=== PATIENT | male | born 1930 | race Caucasian/White ===

== ENCOUNTER 2021-01-26 17:03 | Emergency (ER) | payer OTHER ==
[~2021-01-26] VITALS: Ht 177.8 cm; Wt 81.7 kg
--- NOTE | ~2021-01-26 | EMS ---
[address] [address] EMS Patient Care Report Name: JANELL GARCIA JR Room #: DEP Klever#: [id number] Admission: 01/26/21 Attend Phys: Discharge: 01/26/21 Date of : [birth year] Report #: [id number] THIS REPORT FOR: //name// Report Transmitted: 01/28/2021 12:25 EMS Care Summary [facility] MED-ACT Incident [id number] @ 01/26/2021 16:36 Incident Location [address] [place] [address] Patient JANELL GARCIA Male, 89 Years 1930 Patient Address [address] [place] [address] Patient History Dementia,Hypertension (HTN),Hyperlipidemia, Patient Allergies No known allergies, Patient Medications Lisinopril, Atorvastatin, Sertraline, Chief Complaint Right hip pain Disposition Transported No Lights/[place] Dispatch Reason Falls Transported To [facility] Narrative EMS made contact with 1 male pt sitting in his chair in no apparent distress. Pt and staff reported that the pt had fallen this morning but was now unable to [address] [address] EMS Patient Care Report Name: JANELL GARCIA JR Room #: DEP Jabari.#: [id number] Admission: 01/26/21 Attend Phys: Discharge: 01/26/21 Date of : [birth year] Report #: [id number] walk due to right hip pain and had been in his chair since this morning. Pt didn't rate pain but was unable to move without wincing and grunting with pain. Pt recalled the fall and denied loss of consciousness. head neck or back pain or other acute pain. Pt reported a decrease in pain with fentanyl administration. Pt voiced no further complaints while in EMS care. Initial Vitals @16:55P: 70,R: 16,BP: 155/82,Pain: 6/10,SpO2: 90, @PTAP: 72,R: 16,BP: 156/87,Pain: 10/10,GCS: 14,Temp: 98.7F,Revised Trauma: 12, Impression Injury of Hip Procedures @PTASaline Lock 10cc (20 ga) Site: Hand-LeftResponse: UnchangedSucceeded@16:46Fentanyl - 100 Micrograms (mcg) - Intravenous (IV)Response: Improved@17:00Ondansetron - 4 Milligrams (mg) - OralResponse: Improved Timeline TURN DOWN ATTENDANT,Saline Lock 10cc 20 ga Site: Hand-Left,Response: UnchangedSucceeded, TURN DOWN ATTENDANT,BP: 156/87 M,PULSE: 72,RR: 16 R,SPO2: Ox,ETCO2: ,BG: ,PAIN: 10,GCS: 14, 16:31,Call Received 16:31,Psap Call 16:36,Dispatched 16:36,En Route 16:39,On Scene 16:41,At Patient 16:46,Fentanyl - 100 Micrograms (mcg) - Intravenous (IV),Response: Improved 16:52,Depart Scene 16:55,BP: 155/82 M,PULSE: 70,RR: 16 R,SPO2: 90 Ox,ETCO2: ,BG: ,PAIN: 6,GCS: , 17:00,Ondansetron - 4 Milligrams (mg) - Oral,Response: Improved 17:01,At Destination 17:19,Call Closed Disclaimer v1.1 Copyright 2020 [employer] This EMS Care Summary contains data elements from the applicable legal record (which may be displayed differently). It is designed to provide pertinent information for the following purposes: continuity of care, clinical quality, and state data reporting. The complete legal record is available to ED staff and administrators of the receiving hospital in [employer]'s Patient Tracker. All data is provided "as is."
[2021-01-26 17:30] LABS: BASOPHILS 0.2 % (0.0-2.0); EOSINOPHILS 1.6 % (0.0-3.0); HEMATOCRIT 39.8 % (42.0-52.0); HEMOGLOBIN 13.6 gm/dL (14.0-18.0); LYMPHOCYTES 14.4 % (24.0-44.0); MCH 30.7 pg (26.0-34.0); MCHC 34.3 g/dL (28.0-37.0); MCV 89.4 fL (80.0-100.0); MONOCYTES 7.3 % (1.0-8.0); PLATELET COUNT 191 thou/uL (150-400); POLYS 76.5 % (36.0-66.0); RBC 4.45 mil/uL (4.50-6.00); RDW 14.8 % (10.5-14.5); WBC 7.8 thou/uL (4.0-11.0)
[2021-01-26 17:39] LABS: CALCIUM 8.5 mg/dL (8.5-10.1); POTASSIUM 4.1 mmol/L (3.5-5.1)
[2021-01-26 17:49] LABS: ALBUMIN 3.8 g/dL (3.4-5.0); TOTAL PROTEIN 7.4 g/dL (6.4-8.2)
[2021-01-26 19:06] LABS: URINE BILIRUBIN NEGATIVE (Negative); URINE BLOOD NEGATIVE (Negative); URINE CLARITY CLEAR; URINE COLOR YELLOW; URINE GLUCOSE-RANDOM* NEGATIVE (Negative); URINE KETONES TRACE (Negative); URINE LEUKOCYTES-REFLEX NEGATIVE (Negative); URINE NITRITE-REFLEX NEGATIVE (Negative); URINE PROTEIN (DIPSTICK) NEGATIVE (Negative); URINE UROBILINOGEN 0.2 E.U./dl (0.2-1.0)
[2021-01-26 20:33] VITALS: BP 124/67
--- NOTE | 2021-01-27 07:10 | EKG ---
[address] [address] ELECTROCARDIOGRAM REPORT Name: JANELL GARCIA [id number] Admission: 01/26/21 Attend Phys: Discharge: 01/26/21 Date of : [birth year] Report #: [id number] [facility] ED Test Date: 2021-01-26 Test Time: 17:26:40 Pat Name: JANELL GARCIA Department: Room: Gender: Manager Solar: CHRISTOFER : 1930 Requested By: Daren Ortega Order Number: [id number] MD: Cedrick Briceno Measurements Intervals [place] Rate: 70 P: FL: QRS: -6 QRSD: 150 T: 41 QT: 434 QTc: 469 Interpretive Statements NSR Nonspecific intraventricular conduction delay No previous ECG available for comparison Electronically Signed On 01-27-2021 7:10:19 CDT by Cedrick Briceno [email or web address] <ELECTRONICALLY SIGNED> By: Cedrick Briceno MD, [facility] 01/27/21 0710 1726 1726 Cedrick Briceno MD, FACC /EPI
== END 2021-01-26 20:46 | disposition home or self-care (01) ==
LOC: ER 17:03
PROVIDERS: Emergency Medicine
DX: M54.50 Low back pain, unspecified (principal); W19.XXXA Unspecified fall, initial encounter; Y93.89 Activity, other specified; Y92.89 Other specified places as the place of occurrence of the external cause; Y99.8 Other external cause status

== ENCOUNTER 2021-02-12 13:56 | Inpatient (IN) | payer OTHER ==
[~2021-02-12] VITALS: Ht 172.7 cm; Wt 75.4 kg
--- NOTE | ~2021-02-12 | EMS ---
[facility] [address] [place] [address] EMS Patient Care Report Name: JANELL GARCIA JR Room #: REG SIMONE Ernst#: [id number] Admission: 02/12/21 Attend Phys: Discharge: Date of : [birth year] Report #: [id number] THIS REPORT FOR: //name// Report Transmitted: 02/12/2021 13:35 EMS Care Summary [facility] MED-ACT Incident [id number] @ 02/12/2021 13:25 Incident Location [address] [place] [address] Patient JANELL GARCIA Male, 89 Years 1930 Patient Address [address] [place] [address] Patient History Dementia,Hypertension (HTN),Hyperlipidemia, Patient Allergies No known allergies, Patient Medications Atorvastatin, Sertraline, Lisinopril, Chief Complaint "I fell on my way to the bathroom." Disposition Transported No Lights/[place] Dispatch Reason Falls Transported To [facility] Narrative [id number] arrived to find the pt laying right lateral recumbent, in the bed of an assisted living facility apartment, in the presence of facility staff. [id number] [facility] [address] [place] [address] EMS Patient Care Report Name: JANELL GARCIA JR Room #: REG ER Klever#: [id number] Admission: 02/12/21 Attend Phys: Discharge: Date of : [birth year] Report #: [id number] noted that the pt was alert and interactive, anxious and distressed, but not experiencing any current and obvious life threats. The pt reported that he was ambulating to the bathroom, like he normally does, when he slipped and fell. The pt denied loss of consciousness, medical symptoms prior to falling, as well as head, neck, and back pain. Paperwork provided by the facility revealed no Rx to a blood thinner. The pt reported right lateral hip pain. The pt denied all other medial symptoms. M1144 noted no shortening, extension, or rotation of the pt's effected extremity. M1144 noted that the pt's CSM's were intact. The pt deferred pain management via analgesic medication to the destination hospital, stating that his pain was "fine unless I move." Otherwise, the pt's condition remained stable and unchanged during contact with [facility]. Initial Vitals @13:50P: 71,BP: 193/114,SpO2: 97, @13:33P: 69,R: 20,BP: 171/105,Pain: 2/10,GCS: 15,Temp: 98.7F,SpO2: 95,Revised Trauma: 12, Impression Injury of Hip Procedures @PTASurgical Mask on Patient Response: Unchanged Timeline FAILURE ANALYSIS TECHNICIAN,Surgical Mask on Patient,Response: Unchanged 13:23,Call Received 13:23,Psap Call 13:25,Dispatched 13:25,En Route 13:29,On Scene 13:31,At Patient 13:33,BP: 171/105 M,PULSE: 69,RR: 20 R,SPO2: 95 Ox,ETCO2: ,BG: ,PAIN: 2,GCS: 15, 13:39,Depart Scene 13:50,BP: 193/114 M,PULSE: 71,RR: R,SPO2: 97 Ox,ETCO2: ,BG: ,PAIN: ,GCS: , 13:51,At Destination 14:03,Call Closed Disclaimer v1.1 Copyright 2020 [employer] [facility] [address] [place] [address] EMS Patient Care Report Name: GARCIAJANELL Room #: REG [facility].#: [id number] Admission: 02/12/21 Attend Phys: Discharge: Date of : [birth year] Report #: [id number] This EMS Care Summary contains data elements from the applicable legal record (which may be displayed differently). It is designed to provide pertinent information for the following purposes: continuity of care, clinical quality, and state data reporting. The complete legal record is available to ED staff and administrators of the receiving hospital in [employer]'s Patient Tracker. All data is provided "as is."
[2021-02-12 13:56] VITALS: BP 179/103
--- NOTE | 2021-02-12 14:21 | NUR ---
ZEV LAURA, DAUGHTER [phone]
[2021-02-12] MEDS ORDERED: ASA81BEC PO (14:23)
[2021-02-12] MEDS ORDERED: CALCIUM CITRAT1 EAC7 PO (14:23)
[2021-02-12] MEDS ORDERED: LIPITOR40 MG PO (14:23)
[2021-02-12] MEDS ORDERED: ARICEPT10 M1 PO (14:23)
[2021-02-12] MEDS ORDERED: CELECOXIB100 MG PO (14:24)
[2021-02-12] MEDS ORDERED: CENTRUM SILVER1 EAC7 PO (14:24)
[2021-02-12] MEDS ORDERED: LIDO KING1 EACH TRANSDERM (14:25)
[2021-02-12] MEDS ORDERED: NITROSTAT0.4 M1 SUBLING ×2 (14:25→14:26)
[2021-02-12] MEDS ORDERED: LISINOPRIL10 MG PO (14:25)
[2021-02-12] MEDS ORDERED: SERTRALINE HCL100 MG PO (14:26)
[2021-02-12] MEDS ORDERED: ACETAMINOPHEN500 M1 PO (14:26)
[2021-02-12 14:33] LABS: ABSOLUTE NEUTROPHILS 5.2 thou/uL (1.4-8.2); BASOPHILS 0.4 % (0.0-2.0); EOSINOPHILS 1.6 % (0.0-3.0); HEMATOCRIT 38.3 % (42.0-52.0); HEMOGLOBIN 12.8 gm/dL (14.0-18.0); LYMPHOCYTES 13.2 % (24.0-44.0); MCH 29.9 pg (26.0-34.0); MCHC 33.4 g/dL (28.0-37.0); MCV 89.6 fL (80.0-100.0); MONOCYTES 6.6 % (1.0-8.0); PLATELET COUNT 278 thou/uL (150-400); POLYS 78.2 % (36.0-66.0); RBC 4.27 mil/uL (4.50-6.00); RDW 14.8 % (10.5-14.5); WBC 6.6 thou/uL (4.0-11.0)
[2021-02-12 14:49] LABS: CALCIUM 8.6 mg/dL (8.5-10.1); CREATININE 0.9 mg/dL (0.7-1.3); POTASSIUM 4.2 mmol/L (3.5-5.1)
[2021-02-12 14:55] LABS: ALBUMIN 3.7 g/dL (3.4-5.0); TOTAL BILIRUBIN 0.6 mg/dL (0.2-1.0); TOTAL PROTEIN 6.7 g/dL (6.4-8.2)
--- NOTE | 2021-02-12 14:59 | EKG ---
[place] [address] [facility] [place] [address] ELECTROCARDIOGRAM REPORT Name: JANELL GARCIA Room [facility] [id number] Admission: 02/12/21 Attend Phys: Discharge: Date of : [birth year] Report #: [id number] [facility] ED Test Date: 2021-02-12 Test Time: 14:05:37 Pat Name: JANELL GARCIA Department: Room: Gender: M Advertising Rep: CHRISTOFER : 1930 Requested By: Bryan Lafleur Order Number: [id number] MD: Cedrick Briceno Measurements Intervals [place] Rate: 73 P: -29 SC: 85 QRS: -8 QRSD: 104 T: 37 QT: 430 QTc: 474 Interpretive Statements Sinus rhythm Atrial premature complexes Minimal ST elevation, anterior leads Compared to ECG 01/26/2021 17:26:40 Atrial premature complex(es) now present ST (T wave) deviation now present Intraventricular conduction delay no longer present Electronically Signed On 02-12-2021 14:59:44 CDT by Cedrick Briceno [email or web address] <ELECTRONICALLY SIGNED> By: Cedrick Briceno MD, [facility] 02/12/21 1459 1405 140 Cedrick Briceno MD, FAC /EPI
[2021-02-12 15:38] LABS: URINE BILIRUBIN NEGATIVE (Negative); URINE BLOOD NEGATIVE (Negative); URINE CLARITY CLEAR; URINE COLOR YELLOW; URINE GLUCOSE-RANDOM* NEGATIVE (Negative); URINE KETONES NEGATIVE (Negative); URINE LEUKOCYTES-REFLEX NEGATIVE (Negative); URINE NITRITE-REFLEX NEGATIVE (Negative); URINE PROTEIN (DIPSTICK) NEGATIVE (Negative); URINE UROBILINOGEN 0.2 E.U./dl (0.2-1.0)
[2021-02-12 18:22] VITALS: BP 159/73
[2021-02-12 18:31] VITALS: BP 165/63
[2021-02-12 19:10] LABS: FOLIC ACID 72.3 ng/mL (8.6-58.9)
[2021-02-12 20:32] VITALS: BP 143/69
[2021-02-13 04:00] VITALS: BP 144/75
--- NOTE | 2021-02-13 04:03 | NUR ---
ADMISSION ASSESSMENT COMPLETED. PT IS ALERT AND ORIENTED. CONTINENT OF B/B. REPORTS A LITTLE PAIN TO R HIP, NORCO GIVEN WITH RELIEF.USES URINAL. CALLS WITH NEEDS.
[2021-02-13 07:01] LABS: ABSOLUTE NEUTROPHILS 3.8 thou/uL (1.4-8.2); BASOPHILS 0.6 % (0.0-2.0); EOSINOPHILS 1.9 % (0.0-3.0); HEMATOCRIT 36.5 % (42.0-52.0); LYMPHOCYTES 16.2 % (24.0-44.0); MCH 29.8 pg (26.0-34.0); MCHC 32.8 g/dL (28.0-37.0); MCV 90.8 fL (80.0-100.0); MONOCYTES 9.1 % (1.0-8.0); PLATELET COUNT 271 thou/uL (150-400); POLYS 72.2 % (36.0-66.0); RBC 4.02 mil/uL (4.50-6.00); RDW 14.7 % (10.5-14.5); WBC 5.2 thou/uL (4.0-11.0)
[2021-02-13 07:14] VITALS: BP 139/78
[2021-02-13 07:16] LABS: CALCIUM 7.9 mg/dL (8.5-10.1); CREATININE 0.9 mg/dL (0.7-1.3); MAGNESIUM 1.9 mg/dL (1.8-2.4); POTASSIUM 4.3 mmol/L (3.5-5.1)
[2021-02-13 11:58] VITALS: BP 122/59
[2021-02-13 15:48] VITALS: BP 164/92
--- NOTE | 2021-02-13 16:03 | NUR ---
Patient is down for MRI. Admits post fall. Sp with dtr. Patient with recent fall 2-2 1/2 weeks ago. Dtr reports he was at [facility] workup ruled no fx and patient dc home. At that time patient living in independent living at [facility]. Patient had some caregivers assisting patient in independent living. As of last patient moved to Assisted [facility] at [facility]. [phone] Patient has dementia and dtr reports feels getting worse and he is ing. She reports he is not sleeping well and stays up at night. He does not wander out of apt. Dtr reports last 2 weeks have been difficult for patient. Discussed therapy evals when patient cleared by neurosx. Discussed post acute care. Patient has not rec skilled care as of late. Left [facility] skilled list in room for dtr to review. No weekend dc planned.
--- NOTE | 2021-02-13 18:30 | NUR ---
PT ASSESSED AT START OF SHIFT. NEURO PA IN THIS AM TO EVAL PT. MRI DONE THIS AFTERNOON. PAIN HELPED W/ MED. EATING AND DRINKING WELL. AWAITING PLAN FOR TREATMENT PER DR. BLAKE.
[2021-02-13 20:46] VITALS: BP 146/76
[2021-02-13 20:48] VITALS: BP 150/78
--- NOTE | 2021-02-14 01:45 | NUR ---
PT ASSESSED AT START OF SHIFT. PT SUNDOWNS AT NIGHT TIME. GOT REALLY RESTLESS,IMPULSIVE AND CONFUSED. PAIN MEDICATION GIVEN. PT PULLED OUT IV AND TAKES TELE MONITOR OUT. RIP MACHINE OPERATOR DURABLE MEDICAL EQUIPMENT REPAIRER NOTIFIED AND IM HALDOL GIVEN X1. 4 SIDE RAILS ON FOR SAFETY. MELATONIN GIVEN FOR SLEEP. FREQ ROUNDING DONE AND WILL CONT TO MONITOR TILL EOS.
[2021-02-14 07:20] VITALS: BP 193/85
[2021-02-14 09:22] VITALS: BP 163/73
--- NOTE | 2021-02-14 11:20 | NUR ---
ASSUMED PT CARE THIS AM. PT IS ALERT & ORIENTED X3 EXCEPT TIME. PT HAS NO IV. PT REFUSED TO PLACE AN IV THIS AM AND INFORMED DRFrandy ERWIN IS CONFUSED AND IMPULSIVE AT TIMES. PT IS ON ROOM AIR. PT HAS TELE MONITOR ON. PT ABLE TO SWALLOW MEDICATION WHOLE. PT ON THE BED SLEEPING, BED ON THE LOWEST POSITION, SIDE RAILS UP, CALL LIGHT WITHIN REACH. WILL CONTINUE TO MONITOR PT. FOLLOW POC.
[2021-02-14 12:31] VITALS: BP 169/89
[2021-02-14 15:48] VITALS: BP 178/98
[2021-02-14 20:41] VITALS: BP 170/83
--- NOTE | 2021-02-15 04:00 | NUR ---
PT ALERT WITH INTERMITTENT CONFUSION. STAYED IN BED THRO NOC. HELPED TO REPOSITION SELF IN BED DUE TO THE PAIN, IN PAIN AND R HIP. PAIN MEDS GIVEN. PT TOK HS MEDS WITH NO ISSUES. AFEBRILE.
[2021-02-15 07:57] VITALS: BP 153/85
--- NOTE | 2021-02-15 10:54 | NUR ---
ASSUMED PT CARE THIS AM. PT IS ALERT & ORIENTED X3 EXCEPT TIME. PT HAS NO IV AND DR IS AWARE. PT IS INCONTINENT OF BOWEL AND BLADDER. PT C/O OF R HIP AND GIVEN PAIN MEDICATION PER PT REQUEST. PT TOLERATED DIET AND MEDICATION WELL. PT IS ON ROOM AIR. PT CAN SWALLOW MEDICATION WHOLE. WILL CONTINUE TO MONITOR PT. FOLLOW POC.
[2021-02-15 11:47] VITALS: BP 169/98
[2021-02-15 16:54] VITALS: BP 150/66
[2021-02-15 19:53] VITALS: BP 124/72
[2021-02-16 00:39] VITALS: BP 128/66
--- NOTE | 2021-02-16 02:51 | NUR ---
ASSUMED PT CARE AT 1900.PT OBSERVED LYING ON HIS BED AT SHIFT CHANGE.PT ABLE TO RPEOSITION SELF WHILE IN BED.PT C/O PAIN,MANAGED WITH MED.PT ALERT/CONFUSED AND FORGETFUL.PT STAYED IN BED SO FAR. NO ATTEMPT TO GET OUT OF BED NOTED.PT SLEEPING ON HIS BED AT THIS TIME.CALL IGHT WITHIN REACH.
[2021-02-16 04:00] VITALS: BP 152/88
[2021-02-16 08:29] VITALS: BP 146/69
[2021-02-16] MEDS ORDERED: CYCLOBENZAPRINE5 MG PO (08:59)
--- NOTE | 2021-02-16 10:27 | NUR ---
A/O X 2. ROOM AIR. HAS BEEN BEDBOUND SO FAR THIS SHIFT AND PAIN LEVEL 8/10 WHILE SHIFTIING IN BED. TRAMADOL GIVEN PRN FOR BACK PAIN. LIDOCAINE PATCH PLACED LOWER BACK. INCONT B/B. BILATERAL SCDS ON. MEDS WHOLE. RIGHT HAND IV SALINE LOCKED.
[2021-02-16 11:38] VITALS: BP 110/43
--- NOTE | 2021-02-16 11:56 | NUR ---
CLIFTON reviewed chart and spoke with nursing and attending physician. IR consulted today due to T12/L1 compression fracture. Plan for kyphoplasty tomorrow. PT/OT evals on hold at this time. CLIFTON met with pt at bedside. Pt is alert/orientated to self and place. Pt states his dtr, Chiquis, will be at the hospital later today. SW to discuss discharge plan with pt and dtr: back to [place] with HH v. post-acute placement. CLIFTON left message for charge nurse at [facility], where pt currently resides. CLIFTON is following to assist as needed with discharge planning.
[2021-02-16 15:13] VITALS: BP 108/69
[2021-02-16 19:23] VITALS: BP 118/35
--- NOTE | 2021-02-17 04:10 | NUR ---
RECEIVED CARE OF THIS PATIENT AT 1900. PATIENT ALERT AND ORIENTED X 3, PERSON, SITUATION AND TIME. REMAINS ON BEDREST. C/O PAIN, MED GIVEN. SCD'S ON BILATERAL. NPO AT MA FOR SURGERY THIS AM. SLEPT MOST OF NIGHT.
[2021-02-17 04:37] VITALS: BP 177/71
[2021-02-17 08:48] VITALS: BP 147/56
--- NOTE | 2021-02-17 14:03 | NUR ---
CLIFTON reviewed chart and spoke with nursing and attending physician. Pt is scheduled to have his kyphoplasty procedure today at 1400. PT/OT to evaluate pt after procedure and assist with recommendations for discharge. CLIFTON spoke with Arlin, director at [facility], to provide update. Per Arlin, they would need to do an onsite eval prior to accept pt back if pt is not able to go to a SNF. [facility]'s sister facility is [facility]. CLIFTON spoke with pt's dtr, Chiquis, via phone to provide update and discuss discharge planning. Pt's dtr states they are interested in SNF placement and possible LTC care if pt is unable to return to [facility]. Chiquis states that pt has been confused since moving into [facility], and they do not want to have to continue to move him. Per Chiquis, pt has funds to pay privately for up to two years if needed. CLIFTON reviewed in-network SNF options. Pt's dtr requests referral to be sent to [facility] for review. SW to further review SNF list and will notify SW of alternate options if needed. CLIFTON faxed SNF referral and left voice message for Santiago in admissions. CLIFTON is following to assist as needed with discharge planning.
[2021-02-17 15:07] VITALS: BP 132/81
--- NOTE | 2021-02-17 16:40 | NUR ---
PT ASSESSED AT START OF SHIFT. NPO FOR KYPHOPLASTY. PT WENT AT 1300 AND RETURNED AT 1500 ALERT AND FEELING BETTER. ONE HOUR BEDREST POST PROCEDURE. ATE AND DRANK SOME. 2 BANDAIDS ON BACK DRY AND INTACT. DAUGHTER AT BEDSIDE.
[2021-02-17 19:12] VITALS: BP 150/72
[2021-02-18 03:53] VITALS: BP 152/70
--- NOTE | 2021-02-18 04:07 | NUR ---
RECEIVED CARE OF THIS PATIENT AT 1900. PATIENT ALERT AND ORIENTED X3, PERSON, SITUATION AND TIME. 2 BANDAIDS ON BACK INTACT. C/O PAIN, MED GIVEN. STATES PAIN IS BETTER THAN THE NIGHT BEFORE. SLEPT MOST OF NIGHT.
[2021-02-18 07:30] VITALS: BP 146/51
--- NOTE | 2021-02-18 11:42 | NUR ---
ASSUMED PT CARE THIS AM. PT IS ALERT & ORIENTED X3 EXCEPT PLACE. PT HAS IV SITE ON LFA SALINE LOCKED. PT IS INCONTINENT OF BOWEL AND BLADDER. GIVEN PAIN MEDICATION PRIOR WORKING WITH PHYSICAL AND OCCUPATIONAL THERAPY THIS AM. PT IS ON ROOM AIR. PT HAS LIDOCAINE PATCH ON R LOWER BACK. PT IS CURRENTLY ON THE CHAIR WITH ALARM ON AND CALL LIGHT WITHIN REACH. WILL CONTINUE TO MONITOR PT. FOLLOW POC.
[2021-02-18 11:52] VITALS: BP 114/56
--- NOTE | 2021-02-18 12:01 | NUR ---
CLIFTON reviewed chart and spoke with nursing and attending physician. Pt is s/p kyphoplasty. PT/OT evaluated pt this morning. CLIFTON spoke with Santiago in admissions at [facility] who states they will most likely not have any beds available this week. CLIFTON spoke with pt's dtr, Chiquis, via phone to provide update and discuss alternate SNFs. [facility] Pt's dtr is also going to review [facility] and [facility] as back up options. Pt's dtr was interested in [facility]. However, [facility] is not accepting any admissions at this time due to COVID cases in their facility. CLIFTON faxed SNF referral to [facility] and notified [facility] liaison of new referral. Will need insurance auth. CLIFTON is following to assist as needed with discharge planning.
[2021-02-18 16:45] VITALS: BP 102/61
[2021-02-18 19:28] VITALS: BP 117/66
--- NOTE | 2021-02-19 03:30 | NUR ---
RECEIVED CARE OF THIS PATIENT AT 1900. PATIENT ALERT AND ORIENTED TO PERSON, SITUATION AND TIME. UP WITH ASSIST OF 2. HAS BANDAIDS ON BACK. C/O PAIN, MED GIVEN. SLEPT MOST OF NIGHT.
[2021-02-19 07:54] VITALS: BP 144/68
--- NOTE | 2021-02-19 08:45 | NUR ---
Assumed care of pt at 0700. Pt a&ox2-3. Pain tolerable. RA. No complaints at this time. Call light within reach. Fall precautions in place. Will continue to monitor.
[2021-02-19 11:52] VITALS: BP 108/64
--- NOTE | 2021-02-19 13:39 | NUR ---
[facility] is not accept tna medicare pts at this time, [facility] does not have any beds and [facility] is closed to admits d/t covid. SNF options again reviewed with the pt's dtr Chiquis. She is interested in [facility] and [facility]. Referrals faxed and called. Both can accept. Chiquis prefers [facility] and their liason has visited with her via phone and the pt at bedside. They are submitting an auth request this afternoon and anticipate having a bed tomorrow or Tuesday for the pt.
[2021-02-19 15:24] VITALS: BP 117/70
[2021-02-19 20:41] VITALS: BP 128/70
--- NOTE | 2021-02-20 03:46 | NUR ---
ASSUMED CARE OF PT AT 1900. BEDSIDE REPORT RECIEVED. JAMIE ASSESSMENT COMPLETE. MEDS GIVEN ORDERED AND PRN TRAMADOL AND MELATONIN GIVEN PER PTS REQUEST FOR BACK PAIN. REPOSITIONED FOR COMOFORT, PT REFUSING TURNS AND PREFERRING TO BE ON SIDE, PILLOW PLACED BETWEEN LEGS FOR COMFORT. LFA PIV PATENT SECURE AND SALINE LOCKED. HOURLY ROUNDING CONTINUING, CALL LIGHT IN REACH.
--- NOTE | 2021-02-20 05:48 | NUR ---
I CONCUR WITH NOTE AND ASSESSMENT BY Bryson MONROY LPN
[2021-02-20 08:21] VITALS: BP 142/81
--- NOTE | 2021-02-20 10:14 | NUR ---
Assumed care of pt at 0700. Pt denies back pain today. Up to the chair. Possible discharge to facility today. Call light within reach. Fall precautions in place. Will continue to monitor.
--- NOTE | 2021-02-20 10:56 | NUR ---
SW reviewed chart and spoke with nursing and attending physician. Pt is medically stable for discharge to post-acute care. [facility] has accepted pt and submitted for insurance authorization. Awaiting therapy updates to fax to [facility] for review. Chart copy requested. CLIFTON is following to assist as needed with discharge planning.
[2021-02-20 12:32] VITALS: BP 110/69
[2021-02-20 19:05] VITALS: BP 148/116
--- NOTE | 2021-02-20 22:45 | NUR ---
ASSESSMENT COMPLETED. PT IS ALERT AND ORIENTED WITH SOME FORGETFULNESS. CONVERSATIONAL AND HAPPY. HE STATES THAT HE FEELS ALOT BETTER. OBSERVED IN CHAIR AT THE START OF SHIFT. HE IS ALSO MOVING SELF IN BED BETTER AND W/O HELP. ROOM AIR, NO DISTRESS. TRAMADOL GIVEN FOR SOME LITTLE PAIN-HE SYAS IT HELPS. VSS.2 BAND AIDS TO BACK.NO IRRITATION NOTED. PROGRESSING TOWARDS CARE GOALS.
[2021-02-21 04:38] VITALS: BP 122/55
[2021-02-21 07:08] VITALS: BP 136/92
[2021-02-21 08:11] VITALS: BP 136/92
--- NOTE | 2021-02-21 10:52 | NUR ---
ASSUMED PT CARE THIS AM. PT IS ALERT & ORIENTED X3. PT IS UP WITH ASSIST X1 WITH WALKER AND GAITBELT TO THE BEDSIDE COMMODE. PT IS ON TELE MONITOR ON. PT IS ON ROOM AIR. NO C/O OF NAUSEA AND VOMITING. TOLERATED DIET AND MEDICATION THIS AM. PT ON THE BED, BED ON THE LOWEST POSITION, SIDE RAILS UP, CALL LIGHT WITHIN REACH. WILL CONTINUE TO MONITOR PT. FOLLOW POC.
--- NOTE | 2021-02-21 12:00 | NUR ---
WAS NOTIFIED BY SANDI AT [facility] THAT THEY RECEIVED AUTH FOR SKILLED STAY. NOTIFIED UNIT AND FAXED DC ORDERS/SUMMARY RECEIVED CONFIRMATION AND SANDI NOTIFIED PT'S DTR OF TIME OF TRANSPORT. PT WILL TRANSPORT BY [facility] AND NO 02 AT 1315-0635. [facility] NOTIFIED AND CHART COPY PER US. RN TO CALL REPORT TO [phone].
== END 2021-02-21 13:26 | DRG 516 ==
LOC: ER 13:56 → 4S 17:29 → EROBS 17:29 → 4S 18:43
PROVIDERS: Emergency Medicine; Nurse Practitioner; ADMIT Internal Medicine; ATTEND Internal Medicine
PROC: 0QU03JZ Supplement Lumbar Vertebra with Synthetic Substitute, Percutaneous Approach (ICD-10-PCS; principal; 2021-02-17)
PROC: 0QS03ZZ Reposition Lumbar Vertebra, Percutaneous Approach (ICD-10-PCS; principal; 2021-02-17)
DX: S32.019A Unspecified fracture of first lumbar vertebra, initial encounter for closed fracture (principal); S22.089A Unspecified fracture of T11-T12 vertebra, initial encounter for closed fracture; F03.90 Unspecified dementia, unspecified severity, without behavioral disturbance, psychotic disturbance, mood disturbance, and anxiety; Z20.822 Contact with and (suspected) exposure to COVID-19; I25.10 Atherosclerotic heart disease of native coronary artery without angina pectoris; E78.5 Hyperlipidemia, unspecified; F32.9 Major depressive disorder, single episode, unspecified; G62.9 Polyneuropathy, unspecified; I10 Essential (primary) hypertension; M19.90 Unspecified osteoarthritis, unspecified site; M81.0 Age-related osteoporosis without current pathological fracture; R53.81 Other malaise; R63.4 Abnormal weight loss; E55.9 Vitamin D deficiency, unspecified; R41.0 Disorientation, unspecified; M47.816 Spondylosis without myelopathy or radiculopathy, lumbar region; I48.0 Paroxysmal atrial fibrillation; K59.00 Constipation, unspecified; W01.0XXA Fall on same level from slipping, tripping and stumbling without subsequent striking against object, initial encounter; Y93.89 Activity, other specified; Z87.891 Personal history of nicotine dependence; Z68.25 Body mass index [BMI] 25.0-25.9, adult; Y92.89 Other specified places as the place of occurrence of the external cause; Y99.8 Other external cause status
CPT/HCPCS: 10100